=== PATIENT | male | born 1960 | race Caucasian/White ===

== ENCOUNTER 2023-05-13 08:34 | Day surgery (SDC) | payer OTHER ==
[2023-05-10 13:05] VITALS: BMI 28.7
[~2023-05-13 08:34] MED LIST: LACTATED RINGERS 1,000 ML IV SCH
[2023-05-13 09:09] VITALS: RESP 16; TEMP 97.7
[2023-05-13] MEDS ORDERED: PROPOFOL 10 MG/ML 20 ML VIAL IV ONE (09:48)
[2023-05-13] MEDS ORDERED: LIDOCAINE 2% INJ 20 MG/ML (2 ML VIAL) ONE (09:48)
[2023-05-13] MEDS ORDERED: fentaNYL (PF) 50 MCG/ML 2 ML AMP ONE (09:48)
[2023-05-13] MEDS ORDERED: MIDAZOLAM 2 MG/2 ML VIAL ONE (09:48)
--- NOTE | 2023-05-13 10:18 | P.PCN ---
Date of Procedure: 05/13/23 Procedure(s) Performed: Brief history: Patient is a pleasant 62-year-old white male scheduled for an elective upper endoscopy as well as colonoscopy as a part of evaluation of chronic sore throat and passive regurgitation for the last 2 months duration and screening for colon cancer Procedure performed: Esophagogastroduodenoscopy with biopsy Colonoscopy Preoperative diagnosis: Chronic sore throat and passive regurgitation of 4 months duration Screening for colon cancer Anesthesia: MAC Procedure: After informed consent was obtained from the patient was brought into the endoscopy unit and IV sedation was administered by anesthesia under continuous monitoring. Initially upper endoscopy was done. The Olympus GF 160 video endoscope was inserted inserted into the mouth and esophagus intubated without any difficulty and was gradually advanced into the stomach and duodenum and carefully examined. The bulb and second part of the duodenum appeared normal. The scope was then withdrawn into the stomach adequately insufflated with air and upon careful examination the antrum had mild gastritis and biopsies were done from this area. Mucosa of the body, cardia and fundus appeared normal. The scope was then withdrawn into the esophagus. The GE junction was located at 40 cm to the incisors. It appeared regular linear erosions in the distal esophagus consistent with LA grade B reflux esophagitis. The mucosal folds in the distal esophagus appeared slightly thickened and biopsies were done from this area to rule out years of age esophagitis. Rest of the esophagus appeared normal. Patient tolerated the procedure well. At this time the patient continued to remain sedation. Initial digital rectal examination was normal. Olympus CF 160 video colonoscope was then inserted into the rectum and gradually advanced to the cecum without any difficulty. Careful examination was performed as the scope was gradually being withdrawn. The prep was excellent. The cecum, ascending colon, transverse colon, descending colon, sigmoid colon and rectum appeared normal. At her sigmoid diverticulosis. Retroflexion was performed in the rectum and no lesions were noted. Patient tolerated the procedure well. Impression: 1. Upper endoscopy revealed mild antral gastritis, linear erosions in the distal esophagus consistent with LA grade B reflux esophagitis and thickened distal esophageal folds status post biopsy 2. Colonoscopy was within normal limits with no evidence of colorectal leonard plasia except for scattered sigmoid diverticulosis Recommendations: Findings of this examination were discussed with the patient as well as his family. He was advised to follow with the biopsy results. In the meantime he'll be started on omeprazole 20 mg daily and was educated about antireflux measures. Recommend repeat screening colonoscopy in 10 years.
[2023-05-13 10:37] VITALS: BP 116/74; PULSE 75
== END 2023-05-13 11:08 | disposition home or self-care (01) ==
LOC: ORWHC2ENDO 08:34
PROVIDERS: ATTEND Internal Medicine Gastroenterology
DX: Z12.11 Encounter for screening for malignant neoplasm of colon (principal); K29.50 Unspecified chronic gastritis without bleeding; K20.0 Eosinophilic esophagitis; J31.2 Chronic pharyngitis; K57.30 Diverticulosis of large intestine without perforation or abscess without bleeding; G47.33 Obstructive sleep apnea (adult) (pediatric); F90.9 Attention-deficit hyperactivity disorder, unspecified type; Z88.0 Allergy status to penicillin; Z88.2 Allergy status to sulfonamides; Z79.899 Other long term (current) drug therapy
CPT/HCPCS: 88305; 45378; 43239; J2250; J3010; J2704; J2001

== ENCOUNTER → 2023-05-18 | Outpatient (CLI) | payer OTHER ==
[~2023-05-18] MED LIST changes: +HEPARIN SODIUM 1,000 UN/ML (10ML VL) ONE; -LACTATED RINGERS 1,000 ML IV SCH; +fentaNYL (PF) 50 MCG/ML 2 ML AMP ONE
--- NOTE | 2023-05-18 14:24 | P.SLEEP ---
History of Present Illness DATE: 05/18/2023 CONSULTATION/NEW PATIENT EVALUATION HISTORY OF PRESENT ILLNESS/SLEEP-WAKE EVALUATION: 62-year-old gentleman had been evaluated in the sleep center for possible obstructive sleep apnea hypopnea syndrome. SLEEP SCHEDULE: Usually sleep schedule from 9 PM until about 5 AM, patient getting out of bed around 7 AM. FALLING ASLEEP: Sometimes patient has problems with falling asleep, has TV set and bedroom. DURING SLEEP: Patient has loud snoring and witnessed episodes of stop breathing during the sleep. Patient wakes up from sleep up to 3 times with nocturia No history of hypnogogical hallucinations, sleep paralysis, or cataplexy. DURING THE DAY/WAKE STATE: In the morning patient wake up tired, has difficulti es to pay attention, falling asleep during the day, has problems with memory and concentration. [place] sleepiness scale is 15, while patient is on treatment with Adderall 20 mg twice a day, which indicate extremely severe sleepiness. With Adderall patient doesn't take naps. PAST MEDICAL HISTORY: Acid reflux hyperlipidemia. PAST SURGICAL HISTORY: Wrist surgery, knee surgery. MEDICATIONS: Adderall 20 mg twice a day, omeprazole. SOCIAL HISTORY: Negative for smoking or using alcohol. FAMILY HISTORY: Asthma, acid reflux. REVIEW OF SYSTEMS: Loud snoring, multiple awakenings from sleep, sleepiness during the day. No fevers. No double vision. No recent chest pain. No shortness of breath. No abdominal pain. No bleeding episodes. No blood in urine. No seizure episodes. PHYSICAL EXAMINATION: GENERAL: A pleasant patient without any distress. VITAL SIGNS: BP 164/88, HR 90, RR 16, weight 236.0 pounds, height 6 foot 1 inches, body mass index 31.1, temperature 97.6, oxygen saturation at room air 96%. HEENT: PERRLA, EOMI. Evaluation of oropharynx showed tongue protrudes midline, low position of soft palate Mallampati 4. NECK: Supple. No JVD. Thyroid is not palpable. 17.75 inches in circumference. LUNGS: Clear to percussion and to auscultation. Good air exchange. No wheezing or rhonchi. HEART: S1, S2 regular. No murmurs, gallops or rubs. ABDOMEN: Soft and nontender. Bowel sounds are present. No organomegaly appreciated. EXTREMITIES: No clubbing or cyanosis. 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 Cranial nerves 2 to 7 intact. There is no fasciculation or atrophy noted. No focal deficits observed. ASSESSMENT: 1. Loud snoring, witnessed episodes of stop breathing during the sleep, extremely low position of soft palate Mallampati 4, wide neck 17.75 inches. Obstructive sleep apnea hypopnea syndrome. 2. Mild obesity BMI 31.1. 3. Acid reflux. 4. Hyperlipidemia. 5 status post knee surgery. 6 . Status post wrist surgery. PLAN: 1. Polysomnography for ablation of patient breathing during the sleep. 2. CPAP/BiPAP titration if sleep study confirms obstructive sleep apnea- hypopnea syndrome. 3. Preferable position during sleep on the side. 4. No driving if patient feels any sleepiness. Patient is aware of civil and criminal liability for unsafe driving. 5. Sleep hygiene with regular sleep time for at least 7.5-8 hours. 6. Watching weight. Thank you very much for referring this patient for consultation. Sincerely, Liam Ogden MD, PhD, FAASM. Diplomat of [place] [employer], Sleep Medicine Board by [place] [employer] [place] [employer] Web Site Manager of [facility] Past Medical History Past Medical History: Prostate Disorder Additional Past Medical History / Comment(s): HAS HAD FREQ SORE THROAT ON LT SIDE FOR PAST 4 MONTHS History of Any Multi-Drug Resistant Organisms: None Reported Past Surgical History: Orthopedic Surgery, Tonsillectomy Additional Past Surgical History / Comment(s): COLONOSCOPY. ORIF LT WRIST THEN CTR. KNEE SX CHILD Past Anesthesia/Blood Transfusion Reactions: No Reported Reaction Smoking Status: Never smoker - Past Family History Father Family Medical History: Cancer Sister(s) Family Medical History: Cancer Medications and Allergies Home Medications Medication Instructions Recorded Confirmed Type Dextroamphetamine/Amphetamine 10 mg PO BID 05/10/23 05/10/23 History [Adderall] Finasteride [Proscar] 10 mg PO DAILY 05/10/23 05/10/23 History Allergies Allergy/AdvReac Type Severity Reaction Status Date / Time Penicillins Allergy Unknown Verified 05/13/23 09:05 Childhood Sulfa (Sulfonamide Allergy Unknown Verified 05/13/23 09:05 Antibiotics) Childhood Sleep Note - Sleep Note Sleep Note: Temperature: Pulse Rate: Respiratory Rate: Blood Pressure: SpO2: Height: Weight: BMI: Neck Circumference:
== END ==
LOC: 3 N SLEEP 13:49
PROVIDERS: ATTEND Internal Medicine
DX: G47.33 Obstructive sleep apnea (adult) (pediatric) (principal); E66.9 Obesity, unspecified; Z68.31 Body mass index [BMI] 31.0-31.9, adult; K21.9 Gastro-esophageal reflux disease without esophagitis; E78.5 Hyperlipidemia, unspecified; Z96.653 Presence of artificial knee joint, bilateral; Z98.890 Other specified postprocedural states; Z99.89 Dependence on other enabling machines and devices; Z88.2 Allergy status to sulfonamides; Z88.0 Allergy status to penicillin
CPT/HCPCS: 99211; J3010; J1644

== ENCOUNTER → 2024-12-06 | Outpatient (CLI) | payer OTHER ==
--- NOTE | 2024-12-06 22:39 | MR ---
EXAMINATION TYPE: MR shoulder LT wo con DATE OF EXAM: 12/06/2024 10:27 PM COMPARISON: None. CLINICAL INDICATION: Male, 64 years old with history of N50.812, Left Shoulder Pain for 2 years IV Contrast: cc (None if empty) TECHNIQUE: Multiplanar, multisequence imaging of the left shoulder is performed without contrast. FINDINGS: Rotator Cuff: Increased signal in the infraspinatus tendon. Some more mild increased signal posterior fibers of the distal supraspinatus tendon. Some adjacent fluid subdeltoid/subacromial bursa. Heterog eneous but intact subscapularis tendon. Rotator cuff muscle bulk is preserved. Acromioclavicular Joint: Moderate narrowing and spurring. Moderate to severe capsular hypertrophy. Glenohumeral Joint: No significant spurring. No significant effusion. Labrum: The labrum appears intact and the limitation of nonarthrogram study. Biceps Tendon: The long head of biceps is in normal location within bicipital groove. Increased centr al signal intracapsular portion just before the labral anchor sagittal image 17 for reference. Bone marrow signal: Overall heterogeneity consistent with red marrow reconversion. Some subchondral c ystic change at the acromioclavicular joint. Tiny additional subchondral cystic change involving supe rior Posterior aspect of the humeral head. Other: Moderate axillary subcutaneous edema is noted of uncertain etiology and significance. IMPRESSION: 1. Moderate to severe AC joint arthropathy as detailed above. 2. Some tendinosis of the rotator cuff tendons most prominent involving the infraspinatus tendon. Adj acent mild subdeltoid/subacromial bursitis is present. 3. Tendinosis/partial tear of the intracapsular portion long head of biceps tendon near the labral an chor. [facility], , 12/06/2024 10:37 PM
--- NOTE | 2024-12-06 22:49 | MR ---
EXAMINATION TYPE: MR hip LT wo con DATE OF EXAM: 12/06/2024 10:27 PM COMPARISON: None. CLINICAL INDICATION: Male, 64 years old with history of N50.812, Left Hip Pain IV Contrast: cc (None if empty) Standard multiplanar, multisequence MRI departmental protocol Multiplanar, multisequence images of the pelvis focusing on the left hip were acquired without contra st. FINDINGS: Symmetric mild/moderate axial joint space loss of both hips with mild acetabular spurring. No large joint effusions are present bilaterally. Femoral head shapes are maintained bilaterally. No serpiginous diminished T1 signal to suggest avascular necrosis. No suspicious increased osseous T2 si gnal or osseous edema. Increased T2 signal at the level of the greater trochanters bilaterally is con sistent with insertional tendinosis. Muscle bulk is symmetric and maintained bilaterally. No suspicio us groin adenopathy is seen bilaterally. No groin hernia. There is 1.7 cm thin-walled cyst or cystic lesion in the midline of the posterior prostate base. Sigm oid colonic diverticulosis is present. IMPRESSION: Mild degenerative changes in the left hip. Insertional tendinosis at the level of the greater trochan ter is noted. [facility], , 12/06/2024 10:47 PM
== END | disposition home or self-care (01) ==
LOC: RADMRIMAIN 21:15
PROVIDERS: ATTEND Family Medicine
DX: M19.012 Primary osteoarthritis, left shoulder (principal); N50.812 Left testicular pain; M67.814 Other specified disorders of tendon, left shoulder; M16.12 Unilateral primary osteoarthritis, left hip